=== PATIENT | male | born 1940 | race Caucasian/White ===

== ENCOUNTER 2018-08-20 13:11 | Inpatient (IN) | payer MEDICARE ==
[~2018-08-20] VITALS: Ht 175.3 cm; Wt 116.1 kg
[~2018-08-20 13:11] MED LIST: AMIODARONE200 MG PO; AMLODIPINE10 MG PO; ASPIRIN EC81 MG PO; AVODART0.5 MG OR; B-12 OR; B-121000 MC1 PO; CARVEDILOL25 MG PO; COREG CR40 MG PO; COREG25 MG PO; DOXAZOSIN2 MG OR; EC ASPIRIN325 MG OR; EC ASPIRIN325 MG PO; FUROSEMIDE40 MG PO; GLIME4T PO; GLIMEPIRIDE4 MG PO; HYDROCHLOROT25 MG PO; JANUVIA100 MG OR; JANUVIA100 MG PO; LANTUS100 MG/ML SC; LEVAQUIN750 M1 PO; LIPITOR40 MG PO; LIPITOR80 MG PO; LISINOP/HCTZ1 TA1 OR; LISINOPRIL20 MG PO; LISINOPRIL40 MG PO; METFORMIN500 MG PO; METFORMIN850 MG OR; METFORMIN850 MG PO; METOPROLOL50 M1 PO; METOPROLOL50 MG OR; NIACIN500 MG OR; NIASPAN500 MG PO; NIFEDICAL XL60 MG OR; NIFEDIPINE ER60 MG PO; NITROSTAT0.4 MG PO; NOVOLOG SC; OMEPRAZOLE20 MG OR; OMEPRAZOLE20 MG PO; OXYBUTYNIN5 M1 OR; PLAVIX75 MG PO; POT CHLORIDE20 ME2 PO; POTASSIUM GLUC595 MG PO; ROBITUSSIN AC10 ML PO; SPIRONOLACTONE25 MG PO; SUPER B COMPLEX PO; TOPROL XL25 MG PO; TYLENOL EXT500 MG/RR PO; TYLENOL325 M1 PO; VANCOMYCIN HCL1.5GM IV; VITAMIN D35000 UNI1 PO; VYTORIN 10/201 TAB OR; XARELTO20 MG PO; ZESTRIL40 MG PO
--- NOTE | 2018-08-20 13:28 | NUR ---
PT TRANSFERRED TO ROOM VIA WHEELCHAIR IN STABLE CONDITION ACCOMPANIED BY VOLUNTEER AND SPOUSE;PT AMBULATED WITH A STEADY GAIT AND CANE TO STANDING SCALE AND BEDSIDE;WT AND VS OBTAINED BY ANUJ HERNANDEZ;PT ALERT AND ORIENTED X4;ORIENTED PT TO ROOM AND CALL LIGHT SYSTEM;PT REPORTS WAKING UP TODAY 08/20/18 AND HAVING 4 LOOSE/BRIGHT RED BOWEL MOVEMENTS;PT DENIES ANY CURRENT GI HX, PAIN OR DISCOMFORTS;PAIN SCALE AND REPORTING EDUCATED;ASSESSMENT COMPLETED;RESPIRATIONS EVEN AND UNLABORED ON RA,CLEAR LUNG SOUNDS;PT DOES WEAR HOME CPAP BUT DENIES THE NEED FOR USE IN THE HOSPITAL;O2 @ 2L HUM AT BEDSIDE NEEDED;ABDOMEN DISTENDED/SOFT ON PALPATION AND ACTIVE IN ALL 4 QUADRANTS,LAST BM 08/20/18;STONG PEDAL PULSES WITH +1 EDEMA NOTED, ENCOURAGED ELEVATION;SKIN INTACT;TELE MONITOR IN PLACE WITH 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
[2018-08-20 13:50] VITALS: BP 139/75
--- NOTE | 2018-08-20 13:50 | NUR ---
LAB AT BEDSIDE OBTAINING BLOOD WORK PER ORDER.
[2018-08-20 13:57] LABS: HEMATOCRIT 32.4 % (39.0-50.0); HEMOGLOBIN 10.4 g/dl (14.0-18.0); IMMATURE GRANULOCYTES 0.5 % (0.0-5.0); MEAN CELL VOLUME 85.7 fL CALC (80.0-100.0); MEAN CORPUSCULAR HGB 27.5 pG CALC (26.0-32.0); MEAN CORPUSCULAR HGB CONC 32.1 g/L CALC (32.0-36.0); NEUT# 5.69 thou/uL (1.82-7.42); RED BLOOD COUNT 3.78 mill/uL (4.70-6.10); RED CELL DISTRI WIDTH 13.6 % (11.5-15.5)
[2018-08-20 14:16] LABS: CREATININE 1.6 mg/dL (0.7-1.3); POTASSIUM 4.7 mmol/l (3.5-5.1)
--- NOTE | 2018-08-20 14:30 | NUR ---
RT AT BEDSIDE OBTAINING EKG.
--- NOTE | 2018-08-20 14:41 | NUR ---
PT TRANSFERRED TO XRAY IN STABLE CONDITION
--- NOTE | 2018-08-20 15:45 | NUR ---
PT RETURNED TO MED/SURG VIA WHEELCHAIR IN STABLE CONDITION.
--- NOTE | 2018-08-20 17:05 | NUR ---
PT RESTING IN SEMI FOWLERS POSITION;RESPIRATIONS EVEN AND UNLABORED ON RA;IV FLUIDS CONTINUE TO INFUSE @ 120ML/HR WITH EASE;TELE MONITOR IN PLACE;PT REPORTS POSSIBLE HX OF MRSA IN 2012; PT PLACED ON CONTACT PRECAUTIONS AND NASAL SWAB OBTAINED;ACCUCHECK 261, AND PT COVERED WITH 5 UNITS OF NOVOLOG PER ORDER;PT DENIES ANY ADDITIONAL NEEDS AT THIS TIME AND IS ENCOURAGED TO CALL FOR ASSISTANCE IF NEEDED;FALL PRECAUTIONS IN PLACE WITH CALL LIGHT IN REACH;WILL CONTINUE TO MONITOR
[2018-08-20 17:06] LABS: URINE BILIRUBIN - DIPSTICK NEGATIVE (NEGATIVE); URINE BLOOD DIPSTICK NEGATIVE (NEGATIVE); URINE COLOR YELLOW; URINE GLUCOSE - DIPSTICK 250 mg/dL (NEGATIVE); URINE KETONE NEGATIVE (NEGATIVE); URINE LEUK ESTERASE NEGATIVE (Negative); URINE NITRITE - DIPSTICK NEGATIVE (Negative); URINE PROTEIN - DIPSTICK 30 mg/dL (NEG-TRACE); URINE SPECIFIC GRAVITY 1.025; URINE UROBILINOGEN - DIPSTICK 0.2 E.U./dL (0.2)
[2018-08-20 17:08] LABS: URINE CLARITY CLEAR
[2018-08-20 17:15] LABS: URINE RBC 0-2 RBC/hpf (0-5)
--- NOTE | 2018-08-20 17:25 | NUR ---
AT BEDSIDE DISCUSSING POC.RECTAL EXAM PERFORMED AT THIS TIME BY .PT TO REMAIN ON A CLEAR LIQUID DIET.
[2018-08-20 17:29] VITALS: BP 148/71
[2018-08-20 18:53] VITALS: BP 144/74
[2018-08-20 20:00] VITALS: BP 144/74
--- NOTE | 2018-08-20 20:00 | NUR ---
PATIENT RESTING IN BED WITH AT BEDSIDE. PATIENT IS AWAKE ALERT AND ORIENTEDX3. PATIENT HAD LARGE LOOSE NEGRITA STOOL IN BR AND ALSO VOIDED 300CC OF YELLOW URINE. PATIENT WITH IV SITE TO RIGHT UPPER ARM WITH IVF NS PATENT AND INFUSING ORDERED. SITE APPEARS HEALTHY. ABD IS SOFTLY DISTENDED WITH ACTIVE BS. TELE MONITOR IN PLACE. DR. AGOSTO CALLED AND ORDERED STAT H&H. METOPROLOL D/C. CALL LIGHT IN REACH. WILL CONT TO MONITOR.
[2018-08-20 20:18] LABS: HEMATOCRIT 29.1 % (39.0-50.0); HEMOGLOBIN 9.4 g/dl (14.0-18.0)
--- NOTE | 2018-08-20 21:57 | NUR ---
RESTING IN BED AT THIS TIME-BS TONIGHT 190. COVERED WITH 1UNIT NOVALOG PER SLIDING SCALE COVERAGE SCALE. PROVIDED WITH CLEAR LIQUID SNACK. FLAGYL HUNG ORDERED. SAFETY PRECAUTIONS REINFORCED. CALL LIGHT IN REACH. WILL CONT TO MONITOR.
[2018-08-21] VITALS (12 sets, daily range): BP systolic 121–152; BP diastolic 54–81
--- NOTE | 2018-08-21 00:01 | NUR ---
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 PATIENT HAD MODERATE AMT OF LOOSE NEGRITA COLORED STOOLS. VOIDED 350CC OF YELLOW URINE. ASSISTED BACK TO THE BED. IVF PATENT AND INFUSING AT 120CC/HR-SITE REMAINS HEALTHY AT THIS TIME. TELE MONITOR IN PLACE. SAFETY PRECAUTIONS REINFORCED. CALL LIGHT IN REACH. WILL CONT TO MONITOR.
--- NOTE | 2018-08-21 01:58 | NUR ---
APPEARS SLEEPING POSITIONED ON LEFT SIDE. RESP ARE EVEN AND UNLABORED. CALL LIGHT IN REACH. WILL CONT TO MONITOR.
--- NOTE | 2018-08-21 04:27 | NUR ---
PATIENT IN BED AND VS WERE TAKEN AND RECORDED. IVF NS PATENT AND INFUSING VIA RIGHT UPPER ARM AT 120CC/HR. SITE REMAINS HEALTHY AT THIS TIME. ASSISTED OOB TO THE RECLINER PER PATIENT REQUEST. NO COMPLAINTS AT THIS TIME. DENIES ANY PAIN. SAFETY PRECAUTIONS REINFORCED. CALL LIGHT IN REACH. WILL CONT TO MONITOR.
[2018-08-21 04:51] LABS: HEMATOCRIT 25.7 % (39.0-50.0); HEMOGLOBIN 8.3 g/dl (14.0-18.0); IMMATURE GRANULOCYTES 0.7 % (0.0-5.0); MEAN CORPUSCULAR HGB 27.8 pG CALC (26.0-32.0); MEAN CORPUSCULAR HGB CONC 32.3 g/L CALC (32.0-36.0); NEUT# 5.41 thou/uL (1.82-7.42); RED BLOOD COUNT 2.99 mill/uL (4.70-6.10); RED CELL DISTRI WIDTH 13.7 % (11.5-15.5)
[2018-08-21 05:12] LABS: BILIRUBIN, TOTAL 0.5 mg/dL (0.0-1.4); CREATININE 1.5 mg/dL (0.7-1.3); POTASSIUM 4.3 mmol/l (3.5-5.1)
[2018-08-21 05:19] LABS: ALBUMIN 2.6 g/dL (3.2-5.0); TOTAL PROTEIN 5.6 g/dL (6.3-8.2)
--- NOTE | 2018-08-21 05:45 | NUR ---
PATIENT ASSISTED TO BR USING CANE. PATIENT HAD ANOTHER SMALL LOOSE NEGRITA STOOL. VOIDED 400CC OF YELLOW URINE. ASSISTED TO THE RECLINER. WATCHING TV. CALL LIGHT IN REACH. WILL CONT TO MONITOR.
--- NOTE | 2018-08-21 06:50 | NUR ---
REPORT RECEIVED FROM SB CRAVEN;PT OOB RESTING IN RECLINER;INTRODUCED SELF TO PT AND POC DISCUSSED;PT DENIES ANY CURRENT PAIN OR NEEDS;EDUCATED PT ON REQUIRING A TRANSFUSION OF 2 UNITS OF PRBC'S,PT VERBALIZES UNDERSTANDING;RESPIRATIONS EVEN AND UNLABORED ON RA;TELE MONITORING IN PLACE;IV FLUIDS CONTINUE TO INFUSE WITH EASE TO RIGHT UPPER ARM;PT ENCOURAGED TO CALL FOR ASSISTANCE IF NEEDED;FALL PRECAUTIONS IN PLACE WITH CALL LIGHT IN REACH;WILL CONTINUE TO MONITOR
--- NOTE | 2018-08-21 08:05 | NUR ---
CONSENT OBTAINED FOR 2 UNITS OF PRBC'S;ALL SIGNS AND SYMPTOMS OF A BLOOD TRANSFUSION REACTION EDUCATED AND PT VERBALIZES UNDERSTANDING.
--- NOTE | 2018-08-21 08:06 | NUR ---
AT BEDSIDE DISCUSSING POC INCLUDING BLOOD TRANSFUSION.
--- NOTE | 2018-08-21 08:10 | NUR ---
PT RESTING RECLINER;VS OBTAINED AND ASSESSMENT COMPLETED;RESPIRATIONS EVEN AND UNLABORED ON RA,CLEAR LUNG SOUNDS NOTED;ABDOMEN DISTENDED/SOFT ON PALPATION AND ACTIVE IN ALL 4 QUADRANTS;WEAK PEDAL PULSES WITH +1 EDEMA NOTED,ENCOURAGED ELEVATION;#22G TO RIGHT UPPER ARM INFUSING NS @ 120ML/HR,SITE APPEARS HEALTHY;TELE MONITORING IN PLACE;PT ACCUCHECK 193, COVERED WITH 1 UNIT OF NOVOLOG PER ORDER;CONTACT PRECAUTIONS FOR HX OF MRSA IN PLACE;PT DENIES ANY CURRENT PAIN OR NEEDS,PAIN SCALE AND REPORTING EDUCATED;PT ENCOURAGED TO CALL FOR ASSISTANCE IF NEEDED;FALL PRECAUTIONS IN PLACE WITH CALL LIGHT IN REACH;WILL CONTINUE TO MONITOR
--- NOTE | 2018-08-21 09:50 | NUR ---
1ST UNIT OF PRBC'S STARTED AT THIS TIME BY JULISA AND SB JACKMAN;PT AND SPOUSE EDUCATED ON BLOOD TRANSFUSION REACTIONS AND REPORTING, VERBALIZES UNDERSTANDING;JULISA TO REMAIN AT BEDSIDE FOR INITIAL 15 MINS PER PROTOCAL.WILL CONTINUE TO MONITOR
--- NOTE | 2018-08-21 10:05 | NUR ---
PT TOLERATING 1ST UNIT OF PRBC'S WITH EASE;DENIES ANY PAIN OR DISCOMFORTS;VS STABLE; #22G STARTED TO PT RIGHT HAND ON 2ND ATTEMPT, PT TOLERATED WELL;PT DENIES ANY CURRENT NEEDS AND IS ENCOURAGED TO CALL FOR ASSISTANCE IF NEEDED;FALL PRECAUTIONS REMAIN IN PLACE WITH CALL LIGHT IN REACH;WILL CONTINUE TO MONITOR
--- NOTE | 2018-08-21 11:50 | NUR ---
PT OOB RESTING IN RECLINER;1ST UNIT OF PRBC'S CONTINUES TO INFUSE WITH EASE;RESPIRATIONS EVEN AND UNLABORED ON RA;TELE MONITORING IN PLACE;VS STABLE AT THIS TIME;ACCUCEHECK 259, PT COVERED WITH 5 UNITS OF NOVOLOG PER ORDER;PT DENIES ANY CURRENT NEEDS AND IS INSTRUCTED TO CALL FOR ASSISTANCE IF NEEDED;FALL PRECAUTIONS IN PLACE;WILL CONTINUE TO MONITOR
--- NOTE | 2018-08-21 12:57 | NUR ---
1ST UNIT OF PRBC'S COMPLETED AT THIS TIME;VS STABLE;PT TOLERATED WELL;2OMG OF LASIX ADMINISTERED IV PER ORDER;PT DENIES ANY CURRENT NEEDS;WILL CONTINUE TO MONITOR
--- NOTE | 2018-08-21 14:14 | NUR ---
2ND UNIT OF PRBC'S STARTED AT THIS TIME BY JULISA AND MALATHI WU RN;PT RE-EDUCATED ON THE S/S OF A BLOOD TRANSFUSION REACTION AND VERBALIZES UNDERSTANDING;JULISA TO REMAIN AT BEDSIDE FOR INITIAL 15 MINS PER PROTOCAL.WILL CONTINUE TO MONITOR
--- NOTE | 2018-08-21 16:30 | NUR ---
2ND UNIT OF PRBC'S COMPLETED AT THIS TIME;PT DENIES ANY CURRENT PAIN OR DISCOMFORTS;RESPIRATIONS REMAIN EVEN AND UNLABORED ON RA;IV FLUIDS INFUSING WITH EASE TO RIGHT UPPER ARM @ 120ML/HR;IV SITE TO RIGHT HAND REMOVED PER PT REQUEST,CATHETER INTACT;TELE MONITORING IN PLACE;ACCUCHECK OF 191, PT TO BE COVERED WITH 1 UNIT OF NOVOLOG PER ORDER;PT DENIES ANY ADDITIONAL NEEDS AT THIS TIME;FALL PRECAUTIONS IN PLACE WITH CALL LIGHT IN REACH;WILL CONTINUE TO MONITOR
--- NOTE | 2018-08-21 19:30 | NUR ---
NURSE TO NURSE REPORT FROM MILY MCWILLIAMS. PT SITTING UP IN RECLINER IN ROOM. IVF INFUSING WITHOUT DIFFICULTY; IV SITE APPEARS HEALTHY. PT DENIES ANY PAIN OR DISCOMFORT AT THIS TIME. EDEMA NOTED TO BLE EDUCATED PT ON ELEVATION. PT DENIES ANY BM SINCE THIS AM. CALL LIGHT WITHIN REACH. WILL CONTINUE TO MONITOR.
--- NOTE | 2018-08-21 22:20 | NUR ---
ASSISTED PT TO BATHROOM AT THIS TIME. PT VOIDED 500ML CLEAR YELLOW URINE WITHOUT ANY DIFFICULTY. NO BM. PT ASSISTED BACK TO BED. EDUCATED ON SAFETY PRECAUTIONS. CALL LIGHT WITHIN REACH.
--- NOTE | 2018-08-21 23:27 | NUR ---
ASSISTED PT TO BATHROOM. PT HAD MEDIUM BROWN/GREEN SOFT BM AND VOIDED 400ML CLEAR YELLOW URINE. PT ASSISTED BACK TO BED. PT DENIES ANY PAIN OR DISCOMFORT. CALL LIGHT WITHIN REACH.
[2018-08-22 00:19] VITALS: BP 129/69
--- NOTE | 2018-08-22 01:03 | NUR ---
ASSISTED PT TO RECLINER CHAIR AT THIS TIME. STATES NOT COMFORTABLE IN BED.
[2018-08-22 05:13] VITALS: BP 142/77
[2018-08-22 05:17] LABS: HEMATOCRIT 31.3 % (39.0-50.0); IMMATURE GRANULOCYTES 0.5 % (0.0-5.0); MEAN CELL VOLUME 84.4 fL CALC (80.0-100.0); MEAN CORPUSCULAR HGB 28.3 pG CALC (26.0-32.0); MEAN CORPUSCULAR HGB CONC 33.5 g/L CALC (32.0-36.0); NEUT# 5.01 thou/uL (1.82-7.42); RED BLOOD COUNT 3.71 mill/uL (4.70-6.10); RED CELL DISTRI WIDTH 13.7 % (11.5-15.5)
[2018-08-22 05:25] LABS: HEMOGLOBIN 10.5 g/dl (14.0-18.0)
--- NOTE | 2018-08-22 05:25 | NUR ---
ASSISTED PT BATHROOM. NO BM NOTED AT THIS TIME. PT VOIDED WITHOUT DIFFICULTY. ELENA-CARE PROVIDED. PT ASSIST BACK TO RECLINING CHAIR AT BEDSIDE. DENIES ANY PAIN OR SOB. CALL LIGHT WITHIN REACH.
[2018-08-22 05:38] LABS: ALBUMIN 2.7 g/dL (3.2-5.0); BILIRUBIN, TOTAL 0.8 mg/dL (0.0-1.4); CREATININE 1.5 mg/dL (0.7-1.3); POTASSIUM 3.8 mmol/l (3.5-5.1); TOTAL PROTEIN 5.8 g/dL (6.3-8.2)
[2018-08-22 08:29] VITALS: BP 152/66
--- NOTE | 2018-08-22 08:29 | NUR ---
PT. SITTING UP IN CHAIR; NO DISTRESS NOTED. ASSESSMENT COMPLETED. DENIES NEEDS/PAIN. SCHED MEDS GIVEN. VS OBTAINED. ENCOURAGED TO CALL FOR ANY NEEDS. CALL LIGHT IS IN REACH. WILL CONTINUE TO MONITOR.
--- NOTE | 2018-08-22 10:00 | NUR ---
@830 ADVERTISING EDITOR ASKED PT IF HE WANTED TO WASH UP OR GET IN THE SHOWER THIS AM. PT STATED HE JUST NEEDS HIS BACK WASHED BECAUSE HE DID HIS ELENA AREA THIS AM. ADVERTISING EDITOR UNDRSTOOD, PT ALSO HAD SAID HE WOULD LET ME KNOW WHEN HE WAS READY BECAUSE HE WAS WAITING ON THE DOCTOR TO ROUND. @1000 ADVERTISING EDITOR CAME INTO PT ROOM WITH LINENS FOR BED AND LINENS FOR BATH. PT WAS ASSISTED TO RESTROOM TO WASH UP. PT WASHED FACE AND CHEST. ADVERTISING EDITOR WASHED PT BACK AND LOTIONED WAS ALSO APPLIED. PT ASKED FOR DEODORANT, ADVERTISING EDITOR HANDED PT DEODORANT AND IT WAS APPLIED. BED LINENS WERE ALSO CHANGED AT THIS TIME. PT THANKED ADVERTISING EDITOR AND SAID HE FELT BETTER. NO COMPLAINTS AT THIS TIME. CALL PONCE IN REACH.
--- NOTE | 2018-08-22 10:43 | NUR ---
PT. SITTING UP IN CHAIR WITH NO DISTRESS NOTED. PASTEURIZER HELPER IN AT BEDSIDE ASSISTING WITH BATH; IS IN AT BEDSIDE. PT. DENIES NEEDS. CALL LIGHT IS IN REACH.
--- NOTE | 2018-08-22 11:41 | NUR ---
Pt. sitting up eating lunch with no distress noted; Sched insulin given as per order. remains at bedside and bothe decline needs; Call light is in reach. Will continue to monitor.
[2018-08-22 12:30] VITALS: BP 142/70
--- NOTE | 2018-08-22 15:00 | NUR ---
PT. SITTING UP IN CHAIR; NO DISTRESS NOTED; DENIES NEEDS; VOICES NO CONCERNS; CALL LIGHT IS IN REACH.
[2018-08-22 15:45] VITALS: BP 159/68
--- NOTE | 2018-08-22 19:23 | NUR ---
BEDSIDE REPORT FROM ROSA BASURTO. PT SITTING UP IN RECLINER AT THIS TIME. DENIES ANY PAIN OR DISCOMFORT. IVF INFUSING WITHOUT DIFFICULTY. IV SITE APPEARS HEALTHY. DISCUSSED PLAN OF CARE PT VERBALIZED UNDERSTANDING. CALL LIGHT WITHIN REACH. WILL CONTINUE TO MONITOR.
[2018-08-22 20:25] VITALS: BP 147/69
--- NOTE | 2018-08-22 23:35 | NUR ---
PT RESTING IN BED WITH EYES CLOSED. NO S/S OF PAIN OR DISCOMFORT NOTED. IVF INFUSING WITHOUT DIFFICULTY. CALL LIGHT WITHIN REACH. WILL CONTINUE TO MONITOR.
[2018-08-23 00:10] VITALS: BP 124/52; BP 154/79
--- NOTE | 2018-08-23 03:15 | NUR ---
PT RESTING IN BED WITH EYES CLOSED AT THIS TIME. IVF INFUSING WITHOUT DIFFICULTY. CLINICAL SAFETY SPECIALIST IN PLACE. CALL LIGHT WITHIN REACH.
[2018-08-23 04:36] VITALS: BP 128/70
[2018-08-23 05:33] LABS: HEMATOCRIT 30.4 % (39.0-50.0); HEMOGLOBIN 9.8 g/dl (14.0-18.0); IMMATURE GRANULOCYTES 0.5 % (0.0-5.0); MEAN CELL VOLUME 85.6 fL CALC (80.0-100.0); MEAN CORPUSCULAR HGB 27.6 pG CALC (26.0-32.0); MEAN CORPUSCULAR HGB CONC 32.2 g/L CALC (32.0-36.0); NEUT# 4.73 thou/uL (1.82-7.42); RED BLOOD COUNT 3.55 mill/uL (4.70-6.10); RED CELL DISTRI WIDTH 13.9 % (11.5-15.5)
[2018-08-23 06:57] LABS: ALBUMIN 2.6 g/dL (3.2-5.0); BILIRUBIN, TOTAL 0.6 mg/dL (0.0-1.4); CREATININE 1.4 mg/dL (0.7-1.3); POTASSIUM 3.7 mmol/l (3.5-5.1); TOTAL PROTEIN 5.9 g/dL (6.3-8.2)
[2018-08-23 08:30] VITALS: BP 135/75
[2018-08-23 11:27] LABS: HEMATOCRIT 32.1 % (39.0-50.0); HEMOGLOBIN 10.7 g/dl (14.0-18.0)
[2018-08-23 11:32] VITALS: BP 127/70
[2018-08-23 16:27] VITALS: BP 140/62
--- NOTE | 2018-08-23 19:27 | NUR ---
REPORT FROM RIMA MCWILLIAMS. PT RESTING IN BED AT THIS TIME. DENIES ANY PAIN OR DISCOMFORT. DISCUSSED PLAN OF CARE AND ENCOURAGED SAFETY PRECAUTIONS. PT ALERT AND ORIENTED X3. IV SITE APPEARS HEALTHY AND IVF INFUSING WITHOUT DIFFICULTY. PT HAS CALL LIGHT WITHIN REACH. WILL CONTINUE TO MONITOR.
[2018-08-23 19:32] VITALS: BP 163/82
--- NOTE | 2018-08-23 23:10 | NUR ---
PT SITTING UP RECLINER SLEEPING AT THIS TIME. NO S/S OF PAIN OR DISCOMFORT NOTED. IVF INFUSING WITHOUT DIFFICULTY. CALL LIGHT WITHIN REACH.
[2018-08-24 00:02] VITALS: BP 131/71
--- NOTE | 2018-08-24 03:12 | NUR ---
PT RESTING IN CHAIR WITH EYES CLOSED. IVF INFUSING WITHOUT DIFFICULTY. NO S/S OF PAIN OR DISCOMFORT NOTED. CALL LIGHT WITHIN REACH. WILL CONTINUE TO MONITOR.
[2018-08-24 04:30] VITALS: BP 126/56
[2018-08-24 05:16] LABS: HEMATOCRIT 31.1 % (39.0-50.0); HEMOGLOBIN 10.2 g/dl (14.0-18.0); IMMATURE GRANULOCYTES 0.6 % (0.0-5.0); MEAN CELL VOLUME 86.1 fL CALC (80.0-100.0); MEAN CORPUSCULAR HGB 28.3 pG CALC (26.0-32.0); MEAN CORPUSCULAR HGB CONC 32.8 g/L CALC (32.0-36.0); NEUT# 5.55 thou/uL (1.82-7.42); RED BLOOD COUNT 3.61 mill/uL (4.70-6.10)
[2018-08-24 05:30] LABS: ALBUMIN 2.6 g/dL (3.2-5.0); BILIRUBIN, TOTAL 0.6 mg/dL (0.0-1.4); CREATININE 1.5 mg/dL (0.7-1.3); POTASSIUM 3.6 mmol/l (3.5-5.1); TOTAL PROTEIN 5.8 g/dL (6.3-8.2)
--- NOTE | 2018-08-24 06:12 | NUR ---
PT IV SITE DISLODGED. CATHETER INTACT WHEN REMOVED. NEW IV START #22 LFA X1 ATTEMPT PT TOLERATED WELL. IV ABT INFUSING. WILL HANG SECOND BAG OF ABT WHEN INFUSION COMPLETE.
--- NOTE | 2018-08-24 09:00 | NUR ---
PT RESTING IN RECLINER WITH FEET ELEVATED, NO SIGNS OF DISTRESS NOTED, PT MEDICATED PER MAR. ASSESSMENT COMPLETED AT THIS TIME. PT EAGER FOR DISCHARGE AWAITING ORDERS. CALL LIGHT IN REACH,CONTINUE TO MONITOR.
[2018-08-24] MEDS ORDERED: LEVAQUIN750 MG PO (09:12)
[2018-08-24] MEDS ORDERED: METRONIDAZOL500 MG PO (09:12)
[2018-08-24 09:20] VITALS: BP 126/56
--- NOTE | 2018-08-24 10:26 | NUR ---
DISCUSSED DISCHARGE PAPERS, FAMILY MEMBER AT BEDSIDE, BOTH IN AGREEMENT. WHEELCHAIR BROUGHT TO PT, PT STATES HE WANTS TO USE THE BATHROOM FIRST.
--- NOTE | 2018-08-24 10:30 | NUR ---
Discharge instructions given. Patient verbalizes understanding of same. Discharged in stable condition via Wheelchair to Home with significant other. All belongings sent with pt.
== END 2018-08-24 10:30 | disposition home or self-care (01) | DRG 378 ==
LOC: MS2 13:11
PROVIDERS: ADMIT Internal Medicine Geriatric Medicine; ATTEND Internal Medicine Geriatric Medicine
PROC: 30233N1 Transfusion of Nonautologous Red Blood Cells into Peripheral Vein, Percutaneous Approach (ICD-10-PCS; principal; 2018-08-21)
PROC: 30233N1 Transfusion of Nonautologous Red Blood Cells into Peripheral Vein, Percutaneous Approach (ICD-10-PCS; 2018-08-21)
DX: K57.33 Diverticulitis of large intestine without perforation or abscess with bleeding (principal); D62 Acute posthemorrhagic anemia; I12.9 Hypertensive chronic kidney disease with stage 1 through stage 4 chronic kidney disease, or unspecified chronic kidney disease; E11.22 Type 2 diabetes mellitus with diabetic chronic kidney disease; N18.9 Chronic kidney disease, unspecified; J44.9 Chronic obstructive pulmonary disease, unspecified; G47.30 Sleep apnea, unspecified; K21.9 Gastro-esophageal reflux disease without esophagitis; Z86.73 Personal history of transient ischemic attack (TIA), and cerebral infarction without residual deficits
CPT/HCPCS: G0378; G0379; P9016; Q9967

== ENCOUNTER 2018-09-26 06:42 | Day surgery (SDC) | payer MEDICARE ==
[~2018-09-26 06:42] MED LIST changes: +BACLOFEN10 MG PO; +HYDROCHLOROTH12.5 MG PO; +KLOR-CON M2020 MEQ PO; +LEVAQUIN750 MG PO; +LEVEMIR100 UNIT/M SC; +METRONIDAZOL500 MG PO; +MULTI VIT PO; +PANTOPRAZOLE SO40 MG PO
[2018-09-26 10:08] VITALS: BP 150/73
== END 2018-09-26 10:25 | disposition home or self-care (01) ==
LOC: ENDO 06:42 → ORM 08:00 → ENDO 09:00 → ORM 09:00 → ENDO 09:30
PROVIDERS: ATTEND Internal Medicine Gastroenterology
PROC: 0DBN8ZX Excision of Sigmoid Colon, Via Natural or Artificial Opening Endoscopic, Diagnostic (ICD-10-PCS; principal; 2018-09-26)
PROC: 0DBL8ZX Excision of Transverse Colon, Via Natural or Artificial Opening Endoscopic, Diagnostic (ICD-10-PCS; 2018-09-26)
PROC: 0W3P8ZZ Control Bleeding in Gastrointestinal Tract, Via Natural or Artificial Opening Endoscopic (ICD-10-PCS; 2018-09-26)
DX: K55.21 Angiodysplasia of colon with hemorrhage (principal); D12.5 Benign neoplasm of sigmoid colon; D12.3 Benign neoplasm of transverse colon; K57.30 Diverticulosis of large intestine without perforation or abscess without bleeding; K64.4 Residual hemorrhoidal skin tags; K64.8 Other hemorrhoids; I86.8 Varicose veins of other specified sites; I10 Essential (primary) hypertension; E11.9 Type 2 diabetes mellitus without complications; I48.91 Unspecified atrial fibrillation; Z86.73 Personal history of transient ischemic attack (TIA), and cerebral infarction without residual deficits; G47.30 Sleep apnea, unspecified

== ENCOUNTER 2019-08-25 08:23 | Inpatient (IN) | payer MEDICARE ==
[~2019-08-25] VITALS: Ht 175.3 cm; Wt 48.0 kg
[2019-08-25] MEDS ORDERED: FARXIGA5 MG PO (16:33)
[2019-08-25] MEDS ORDERED: VITAMIN D32000 UNI2 PO (16:37)
[2019-08-25] MEDS ORDERED: REPAGLINIDE1 MG PO (16:42)
[2019-08-25] MEDS ORDERED: SG ASA LOW81 M1 PO (16:43)
[2019-08-25] MEDS ORDERED: DIAZEPAM5 MG PO (16:44)
[2019-08-25] MEDS ORDERED: TRULICITY0.75 MG/0. SC (16:46)
[2019-08-31] VITALS (9 sets, daily range): BP systolic 111–159; BP diastolic 65–88
[2019-09-01 04:50] VITALS: BP 140/74
[2019-09-01 05:05] LABS: HEMATOCRIT 36.6 % (39.0-50.0); HEMOGLOBIN 11.3 g/dl (14.0-18.0)
[2019-09-01 07:57] VITALS: BP 144/74
[2019-09-01 10:35] LABS: HEMATOCRIT 37.7 % (39.0-50.0); HEMOGLOBIN 11.7 g/dl (14.0-18.0); IMMATURE GRANULOCYTES 0.5 % (0.0-5.0); MEAN CELL VOLUME 83.4 fL CALC (80.0-100.0); MEAN CORPUSCULAR HGB 25.9 pG CALC (26.0-32.0); NEUT# 11.85 thou/uL (1.82-7.42); RED BLOOD COUNT 4.52 mill/uL (4.70-6.10); RED CELL DISTRI WIDTH 15.2 % (11.5-15.5)
[2019-09-01 11:01] LABS: MAGNESIUM 1.1 mg/dL (1.6-2.3); POTASSIUM 4.2 mmol/l (3.5-5.1)
[2019-09-01 12:00] VITALS: BP 148/74
[2019-09-01 15:54] VITALS: BP 147/72
[2019-09-01 18:58] VITALS: BP 142/72
[2019-09-02] VITALS (7 sets, daily range): BP systolic 130–151; BP diastolic 65–79
[2019-09-02 05:11] LABS: HEMATOCRIT 37.3 % (39.0-50.0); HEMOGLOBIN 11.2 g/dl (14.0-18.0); IMMATURE GRANULOCYTES 0.6 % (0.0-5.0); MEAN CORPUSCULAR HGB 25.5 pG CALC (26.0-32.0); NEUT# 9.85 thou/uL (1.82-7.42); RED BLOOD COUNT 4.39 mill/uL (4.70-6.10); RED CELL DISTRI WIDTH 15.2 % (11.5-15.5)
[2019-09-02 05:25] LABS: CREATININE 2.1 mg/dL (0.7-1.3); POTASSIUM 4.3 mmol/l (3.5-5.1)
[2019-09-03] VITALS (7 sets, daily range): BP systolic 131–165; BP diastolic 70–85
[2019-09-03 05:20] LABS: HEMOGLOBIN 9.5 g/dl (14.0-18.0); IMMATURE GRANULOCYTES 0.8 % (0.0-5.0); MEAN CELL VOLUME 83.5 fL CALC (80.0-100.0); MEAN CORPUSCULAR HGB 25.7 pG CALC (26.0-32.0); MEAN CORPUSCULAR HGB CONC 30.8 g/L CALC (32.0-36.0); NEUT# 9.51 thou/uL (1.82-7.42); RED BLOOD COUNT 3.69 mill/uL (4.70-6.10); RED CELL DISTRI WIDTH 15.1 % (11.5-15.5)
[2019-09-03 05:28] LABS: HEMATOCRIT 30.8 % (39.0-50.0)
[2019-09-03 05:36] LABS: CREATININE 2.2 mg/dL (0.7-1.3); POTASSIUM 3.8 mmol/l (3.5-5.1)
[2019-09-03 05:52] LABS: MAGNESIUM 2.3 mg/dL (1.6-2.3)
[2019-09-04 04:25] VITALS: BP 154/82
[2019-09-04 06:16] LABS: HEMATOCRIT 29.9 % (39.0-50.0); HEMOGLOBIN 9.2 g/dl (14.0-18.0); IMMATURE GRANULOCYTES 0.6 % (0.0-5.0); MEAN CELL VOLUME 84.7 fL CALC (80.0-100.0); MEAN CORPUSCULAR HGB 26.1 pG CALC (26.0-32.0); MEAN CORPUSCULAR HGB CONC 30.8 g/L CALC (32.0-36.0); NEUT# 7.35 thou/uL (1.82-7.42); RED BLOOD COUNT 3.53 mill/uL (4.70-6.10); RED CELL DISTRI WIDTH 15.3 % (11.5-15.5)
[2019-09-04 06:22] LABS: CREATININE 1.9 mg/dL (0.7-1.3); MAGNESIUM 1.9 mg/dL (1.6-2.3); POTASSIUM 3.9 mmol/l (3.5-5.1)
[2019-09-04 07:51] VITALS: BP 162/78
[2019-09-04 19:36] VITALS: BP 162/70
[2019-09-05 04:00] VITALS: BP 154/73
[2019-09-05 05:43] LABS: HEMATOCRIT 28.8 % (39.0-50.0); HEMOGLOBIN 8.7 g/dl (14.0-18.0); MEAN CELL VOLUME 85.2 fL CALC (80.0-100.0); MEAN CORPUSCULAR HGB 25.7 pG CALC (26.0-32.0); MEAN CORPUSCULAR HGB CONC 30.2 g/L CALC (32.0-36.0); RED BLOOD COUNT 3.38 mill/uL (4.70-6.10); RED CELL DISTRI WIDTH 15.1 % (11.5-15.5)
[2019-09-05 06:28] LABS: CREATININE 1.6 mg/dL (0.7-1.3); MAGNESIUM 1.8 mg/dL (1.6-2.3); POTASSIUM 4.1 mmol/l (3.5-5.1)
[2019-09-05 07:50] VITALS: BP 163/67
[2019-09-05 15:10] VITALS: BP 155/78
[2019-09-05 20:15] VITALS: BP 155/76
[2019-09-06 03:37] VITALS: BP 156/76
[2019-09-06 05:24] LABS: HEMATOCRIT 29.8 % (39.0-50.0); HEMOGLOBIN 9.4 g/dl (14.0-18.0); IMMATURE GRANULOCYTES 0.4 % (0.0-5.0); MEAN CORPUSCULAR HGB 26.2 pG CALC (26.0-32.0); MEAN CORPUSCULAR HGB CONC 31.5 g/L CALC (32.0-36.0); NEUT# 6.27 thou/uL (1.82-7.42); RED BLOOD COUNT 3.59 mill/uL (4.70-6.10); RED CELL DISTRI WIDTH 15.1 % (11.5-15.5)
[2019-09-06 05:35] LABS: URINE BILIRUBIN - DIPSTICK NEGATIVE (NEGATIVE); URINE BLOOD DIPSTICK SMALL (NEGATIVE); URINE COLOR YELLOW; URINE GLUCOSE - DIPSTICK NEGATIVE (NEGATIVE); URINE KETONE NEGATIVE (NEGATIVE); URINE NITRITE - DIPSTICK NEGATIVE (Negative); URINE PH 5.5 (4.5-8.0); URINE PROTEIN - DIPSTICK 30 mg/dL (NEG-TRACE); URINE UROBILINOGEN - DIPSTICK 0.2 E.U./dL (0.2)
[2019-09-06 05:55] LABS: CREATININE 1.8 mg/dL (0.7-1.3); MAGNESIUM 1.7 mg/dL (1.6-2.3); POTASSIUM 3.8 mmol/l (3.5-5.1)
[2019-09-06 06:02] LABS: URINE EPITHELIAL CELLS FEW EPI/hpf (0-FEW); URINE LEUK ESTERASE NEGATIVE (NEGATIVE)
[2019-09-06 06:03] LABS: URINE BACTERIA FEW hpf; URINE URIC ACID CRYSTALS MODERATE lpf
[2019-09-06 07:24] VITALS: BP 164/69
[2019-09-06 14:00] VITALS: BP 149/72
[2019-09-06 19:42] VITALS: BP 148/65
[2019-09-07 04:43] LABS: HEMATOCRIT 27.7 % (39.0-50.0); HEMOGLOBIN 8.8 g/dl (14.0-18.0); IMMATURE GRANULOCYTES 0.5 % (0.0-5.0); MEAN CELL VOLUME 82.4 fL CALC (80.0-100.0); MEAN CORPUSCULAR HGB 26.2 pG CALC (26.0-32.0); MEAN CORPUSCULAR HGB CONC 31.8 g/L CALC (32.0-36.0); NEUT# 7.34 thou/uL (1.82-7.42); RED BLOOD COUNT 3.36 mill/uL (4.70-6.10); RED CELL DISTRI WIDTH 14.9 % (11.5-15.5)
[2019-09-07 05:00] VITALS: BP 146/67
[2019-09-07 05:28] LABS: CREATININE 1.7 mg/dL (0.7-1.3); MAGNESIUM 1.5 mg/dL (1.6-2.3); POTASSIUM 3.5 mmol/l (3.5-5.1)
[2019-09-07 08:30] VITALS: BP 170/83
[2019-09-07] MEDS ORDERED: PERCOCET 10/31 COMBO PO (09:17)
[2019-09-07] MEDS ORDERED: DOXYCYCL HYC100 MG PO (09:20)
[2019-09-07 10:00] VITALS: BP 171/72
[2019-09-08] MEDS ORDERED: DIAZEPAM5 MG PO (10:54)
== END 2019-09-07 13:52 | DRG 469 ==
LOC: OR 08-31 07:30 → MS2 08-31 08:00 → OR 08-31 10:45 → MS2 09-07 13:52
PROVIDERS: Nurse Practitioner Family; ADMIT Orthopaedic Surgery; ATTEND Orthopaedic Surgery
PROC: 0SRC0J9 Replacement of Right Knee Joint with Synthetic Substitute, Cemented, Open Approach (ICD-10-PCS; principal; 2019-08-31)
PROC: 3E0T3BZ Introduction of Anesthetic Agent into Peripheral Nerves and Plexi, Percutaneous Approach (ICD-10-PCS; 2019-08-31)
DX: M17.0 Bilateral primary osteoarthritis of knee (principal); J18.9 Pneumonia, unspecified organism; N17.9 Acute kidney failure, unspecified; I12.9 Hypertensive chronic kidney disease with stage 1 through stage 4 chronic kidney disease, or unspecified chronic kidney disease; N18.3 Chronic kidney disease, stage 3 (moderate); E11.22 Type 2 diabetes mellitus with diabetic chronic kidney disease; R09.02 Hypoxemia; I48.91 Unspecified atrial fibrillation; E78.5 Hyperlipidemia, unspecified; G47.33 Obstructive sleep apnea (adult) (pediatric); I25.2 Old myocardial infarction; Z86.73 Personal history of transient ischemic attack (TIA), and cerebral infarction without residual deficits; Z87.891 Personal history of nicotine dependence; Z95.1 Presence of aortocoronary bypass graft; Z95.0 Presence of cardiac pacemaker; Z79.4 Long term (current) use of insulin; Z79.02 Long term (current) use of antithrombotics/antiplatelets; Z91.19 Patient's noncompliance with other medical treatment and regimen; G89.18 Other acute postprocedural pain
CPT/HCPCS: J0131; J1650; J3475